=== PATIENT | male | born 1965 | race American Indian/Alaskan Native ===

== ENCOUNTER 2016-11-11 17:56 | Emergency (ER) | payer OTHER, MEDICARE ==
[2016-11-11 18:00] VITALS: RESP 18; TEMP 97.8; BMI 24.4
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
[2016-11-11] MEDS ORDERED: cefTRIAXone (Rocephin) 250 mg Inj IM STA (19:39)
[2016-11-11 19:57] VITALS: BP 124/72; PULSE 68
[2016-11-11 19:58] VITALS: O2SAT 100
== END 2016-11-11 19:57 ==
LOC: C.ER 17:56
DX: Z04.41 Encounter for examination and observation following alleged adult rape (principal)
CPT/HCPCS: 96372; 99283; J0696